=== PATIENT | female | born 1965 | race Caucasian/White ===

== ENCOUNTER 2017-02-17 10:19 | Inpatient (IN) | payer OTHER ==
[2017-02-17] MEDS ORDERED: methylPREDNISolone Sod Succ/PF 125 MG/2 ML VIAL ONE (10:50)
[2017-02-17] MEDS ORDERED: Water For Inject, Bacteriostat 30 ML ONE (10:51)
[2017-02-17 11:02] LABS: #Basophils 0.1 thou/uL (0.0-0.2); #Eosinphils 0.2 thou/uL (0.0-0.7); #Lymphocytes 2.2 thou/uL (1.20-3.40); #Neutrophils 5.8 thou/uL (1.40-6.50); %Basophils 0.9 % (0.0-1.0); %Eosinophils 1.8 % (0.0-10.0); %Lymphocytes 23.5 % (21.0-51.0); %Monocytes 10.6 % (0.0-10.0); Hematocrit 46.5 % (36.0-47.0); Mean Platelet Volume 6.4 fL (7.4-10.4); Red Blood Cell (RBC) Count 4.93 mill/uL (4.20-5.40); White Blood Cell (WBC) Count 9.2 thou/uL (4.8-10.8)
[2017-02-17 11:11] LABS: ALT (SGPT) 14 U/L (8-55); AST (SGOT) 19 U/L (5-34); Alkaline Phosphatase 113 U/L (40-150); Anion Gap 13 mmol/L (10-20); BUN (Urea Nitrogen) 4 mg/dL (9.8-20.1); Bilirubin, Total 0.5 mg/dL (0.2-1.2); CK (CPK) 73 U/L (29-168); Calc. Creatinine Clearance 0 mL/min (70-130); Calcium 9.1 mg/dL (7.8-10.44); Carbon Dioxide 23 mmol/L (22-29); Chloride 104 mmol/L (98-107); Estimated GFR-MDRD 75; Globulin 3.6 g/dL (2.4-3.5); Lipase Less than 4 U/L (8-78); Protein, Total 7.1 g/dL (6.0-8.3)
[2017-02-17 11:13] LABS: Troponin I Less than 0.010 ng/mL (< 0.028)
--- NOTE | 2017-02-17 11:24 | RAD ---
PORTABLE CHEST 1 VIEW: DATE: 02/17/17. TIME: 10:50 a.m. HISTORY: Dyspnea. Strep throat infection diagnosed 4 days ago. FINDINGS: Comparison is made with the exam of 04/30/14. The heart size is normal. The lungs are expanded without focal areas of consolidation, pneumothorax , or pleural effusions. IMPRESSION: No radiographic evidence of acute cardiopulmonary process. POS: [facility]
[2017-02-17] MEDS ORDERED: Magnesium Sulfate 2 GM/100 ML BAG ONE (12:26)
[2017-02-17] MEDS ORDERED: Benzonatate 100 MG CAP PO PRN (16:11)
[2017-02-17] MEDS ORDERED: Artificial Tears 18 DROP/0.9 ML EA EYE PRN (16:11)
[2017-02-17] MEDS ORDERED: Ondansetron ODT 4 MG TAB PO PRN (16:11)
[2017-02-17] MEDS ORDERED: Acetaminophen 325 MG TAB PO PRN (16:11)
[2017-02-17] MEDS ORDERED: Chloraseptic Spray 180 ml Bottle PO PRN (16:11)
[2017-02-17] MEDS ORDERED: Mag-Al 1200 mg/1200 mg/30 ML UDCUP PO PRN (16:11)
[2017-02-17] MEDS ORDERED: Senokot 8.6 MG TAB PO PRN (16:11)
[2017-02-17] MEDS ORDERED: Loratadine 10 MG TAB PO PRN (16:11)
[2017-02-17] MEDS ORDERED: Sodium Chloride 0.65% Nasal 44 ML BOT EA NARE PRN (16:11)
[2017-02-17] MEDS ORDERED: Milk Of Magnesia 30 ML UDCUP PO PRN (16:11)
[2017-02-17] MEDS ORDERED: Zolpidem Tartrate 5 MG TAB PO PRN (16:11)
[2017-02-17] MEDS ORDERED: Ondansetron HCl/PF 4 MG/2 ML Vial IVP PRN (16:11)
[2017-02-17] MEDS ORDERED: Eucerin (Mineral Oil/Petrolatum,White) 30 gm Jar TOP PRN (16:11)
[2017-02-17] MEDS ORDERED: Diabetic Tussin 200 MG/10 ML UDCUP PO PRN (16:11)
[2017-02-17] MEDS ORDERED: HYDROcodone/Acetaminophen 5/325 mg Tablet PO PRN (16:11)
--- NOTE | 2017-02-17 16:26 | HP ---
PRIMARY CARE PHYSICIAN: Simba Serrano M.D. REASON FOR ADMISSION: Acute hypoxic respiratory failure and COPD exacerbation. HISTORY OF PRESENT ILLNESS: A 51-year-old female who has underlying history of hypothyroidism, bipo lar/schizoaffective disorder, and HIV, who came to the emergency room for evaluation of increasing s hortness of breath. The patient reports that 4 days ago she was diagnosed with streptococcal throat and she was given prescription for Z-NISH. The patient took 4 days a Z-NISH and her sore throat was getting better, but the patient had increasing shortness of breath during that period. She was whee zing. She was having cough. She was not able to lie down flat. She was coughing a lot and she was having yellowish sputum. She denies any hemoptysis. She was feeling chest tightness because of co ughing and because of coughing, she was also having abdominal muscle soreness. The patient does hav e a history of COPD, but she was never on oxygen at home. When she presented to emergency room, she was hypoxic with saturation 89%. With oxygen, her saturation improved to 96%. Whenever the patien t was doing little exertion, her symptoms were getting worse and she was becoming hypoxic. The bernardino ent denies any lower extremity swelling. She denies any calf tenderness. She denies any recent tra keeley. She denies any flu-like illness. REVIEW OF SYSTEMS: The following complete review of systems was negative, unless otherwise mentione d in the HPI or below: Constitutional: Weight loss or gain, ability to conduct usual activities. Skin: Rash, itching. Eyes: Double vision, pain. ENT/Mouth: Nose bleeding, neck stiffness, pain, tenderness. Cardiovascular: Palpitations, dyspnea on exertion, orthopnea. Respiratory: Shortness of breath, wheezing, cough, hemoptysis, fever or night sweats. Gastrointestinal: Poor appetite, abdominal pain, heartburn, nausea, vomiting, constipation, or diar milton. Genitourinary: Urgency, frequency, dysuria, nocturia. Musculoskeletal: Pain, swelling. Neurologic/Psychiatric: Anxiety, depression. Allergy/Immunologic: Skin rash, bleeding tendency. Please see my HPI for pertinent positives and negatives. All other review of systems reviewed and n egative except as mentioned in the HPI. PAST MEDICAL HISTORY: Chronic hepatitis C, hypothyroidism, HIV followed by Dr. Maggie, COPD, morbid obesity, and tobacco abuse disorder. PAST SURGICAL HISTORY: Cholecystectomy, bladder sling surgery, appendicectomy, hysterectomy, and ri ght knee surgery. PAST PSYCHIATRIC HISTORY: Bipolar disorder and schizoaffective disorder. The patient has history o f inpatient psychiatric admission in the past. SOCIAL HISTORY: The patient lives at home. She smokes about 2 pack every day basis. She denies an y alcohol abuse. She denies any other illicit drug abuse. FAMILY HISTORY: No strong family history of premature coronary artery disease, stroke or cancer. ALLERGIES: PENICILLIN. CURRENT HOME MEDICATIONS: The patient is on antiretroviral therapy prescribed by Dr. Serrano. The pa tient is not able to tell the name of medication. As per report, the patient is on Stribild one tab let daily, Invega one tablet daily, Synthroid 88 mcg p.o. daily, lamotrigine 200 mg p.o. daily, Geod on 80 mg p.o. twice daily, Effexor 150 mg daily, and Cogentin 1 mg p.o. daily. EMERGENCY ROOM COURSE: The patient has received DuoNeb therapy, Solu-Medrol 125 mg, magnesium sulfa te 2 grams IV fluid. PHYSICAL EXAMINATION: VITAL SIGNS: On arrival, blood pressure 122/80, pulse 100, respiratory rate 22, temperature 98.1, s aturation 89% on room air, with exertion it drops to below 88% and with oxygen therapy saturation re dilma in 92%, weight 97.5 kilograms. GENERAL: The patient is currently alert, awake, mild respiratory distress. HEENT: Head: Normocephalic and atraumatic. Eyes: Pupils round and reactive to light. Extraocula r muscles are intact. ENT: Oropharynx within normal limits, mild pharyngeal erythema noted. No ex udate. NECK: Supple. Range of motion is normal. No meningeal signs of irritation. LUNGS: Bilateral end expiratory wheezing. No rales. No accessory muscles of respiration in use. CARDIAC: S1, S2 regular, slight tachycardia, no murmur, no gallop, no rub. ABDOMEN: Obesity present. Bowel sounds present. No suprapubic tenderness. No organomegaly, no ma ss. BACK: Unremarkable, no CVA tenderness. EXTREMITIES: Upper extremity passive movements of all joints are normal. Lower extremities: No ed cornelius, no calf tenderness. Good peripheral pulsation. SKIN: No skin rash. HEMATOLOGICAL SYSTEM: No lymphadenopathy. PSYCHIATRIC: Normal affect. NEUROLOGIC: Nonfocal examination. SIGNIFICANT LABS: EKG based on my review reveals normal sinus rhythm within normal limits. Chest x -ray based on my review, no acute cardiopulmonary process. CBC: WBC 9.2, hemoglobin 15.9, and plat elets 259. BMP: Sodium 137, potassium 3.3, chloride 104, carbon dioxide 23, BUN 4, creatinine 0.80 , glucose 101, calcium 9.1. LFT: AST 19, ALT 14, alkaline phosphatase 113, albumin 3.5. Lipase le ss than 4. ASSESSMENT AND PLAN: 1. Acute hypoxic respiratory failure due to underlying chronic obstructive pulmonary disease exacer bation. At this point, the patient is maintaining oxygen saturation with 2-3 liter nasal cannula. During this admission, we will monitor her oxygen saturation daily basis to assess need for home oxy gen therapy. 2. Chronic obstructive pulmonary disease exacerbation. At this point, the patient is hypoxic and s he has bilateral wheezing and she failed outpatient therapy. The patient will require admission. W e will continue with DuoNeb q.4 hourly, Solu-Medrol 40 mg IV q.6 hourly, Dulera 2 puffs inhalation b .i.d., Mucinex 600 mg twice daily, empiric antibiotic therapy with levofloxacin 500 mg IV daily. Sy mptomatic treatment for cough with Robitussin, Tessalon and Chloraseptic gargles. 3. Recent streptococcal pharyngitis. We will provide Chloraseptic spray as needed basis. The bernardino ent is on Levaquin therapy. The patient has finished azithromycin therapy. 4. Hypothyroidism. We will continue Synthroid 88 mcg p.o. daily. 5. Hypokalemia. We will replace potassium with IV fluid and we will repeat BMP tomorrow. 6. Tobacco abuse disorder. Smoking cessation counseling given and we will provide nicotine patch w zuly in hospital. 7. Bipolar disorder and schizoaffective disorder. The patient's home medication of Cogentin, Geodo n, lamotrigine, and Invega will be continued as per her home dosage. We will also continue Effexor as per home dosage. 8. Morbid obesity. Dietary education given and weight loss education given. Healthy lifestyle luz elena sures discussed with the patient. 9. Human immunodeficiency virus. The patient is followed by Dr. Serrano. We will continue her antir etroviral therapy while in hospital. 10. History of hepatitis C, currently LFT normal. The patient is following Dr. Serrano for that prob sandip. 11. Deep venous thrombosis prophylaxis. Lovenox 40 mg subcu daily. 12. Gastrointestinal prophylaxis. Protonix 40 mg p.o. daily. CODE STATUS: The patient is FULL CODE. The patient does not have any surrogate decision maker. Disposition plan based on clinical course. We are expecting patient's stay in hospital more than 2 midnights. Plan of care discussed with the patient's family member at bedside in the emergency room .
[2017-02-17] MEDS ORDERED: FLU VACC QS2017-18 36 mo. & older 0.5 ML SYRINGE IM ONE (16:30)
[2017-02-17 16:51] VITALS: BMI 33.6
[2017-02-17] MEDS: Potassium Chloride 30 MEQ in Sodium Chloride 0.9% 1,000 ML IV SCH (17:12)
[2017-02-17] MEDS: Nicotine 21 MG PATCH TD SCH (17:12)
[2017-02-17] MEDS: Mometasone/Formoterol 120 PUFF INHALER INH SCH (18:36)
[2017-02-17] MEDS: guaiFENesin ER 600 MG TAB PO SCH (20:44)
[2017-02-17] MEDS ORDERED: lamoTRIgine 100 MG TAB PO SCH (21:00)
[2017-02-18 05:34] LABS: #Basophils 0.1 thou/uL (0.0-0.2); #Lymphocytes 1.2 thou/uL (1.20-3.40); #Monocytes 0.2 thou/uL (0.11-0.59); #Neutrophils 10.6 thou/uL (1.40-6.50); %Basophils 0.9 % (0.0-1.0); %Eosinophils 0.3 % (0.0-10.0); %Lymphocytes 10.1 % (21.0-51.0); %Monocytes 1.7 % (0.0-10.0); Hematocrit 46.6 % (36.0-47.0); Mean Platelet Volume 6.7 fL (7.4-10.4); Red Blood Cell (RBC) Count 4.92 mill/uL (4.20-5.40); White Blood Cell (WBC) Count 12.2 thou/uL (4.8-10.8)
[2017-02-18] MEDS: Levothyroxine Sodium 88 MCG TAB PO SCH (05:46)
[2017-02-18] MEDS: Potassium Chloride 30 MEQ in Sodium Chloride 0.9% 1,000 ML IV SCH (05:51)
[2017-02-18 05:57] LABS: Anion Gap 10 mmol/L (10-20); BUN (Urea Nitrogen) 11 mg/dL (9.8-20.1); Calc. Creatinine Clearance 127 mL/min (70-130); Calcium 8.8 mg/dL (7.8-10.44); Carbon Dioxide 23 mmol/L (22-29); Chloride 109 mmol/L (98-107); Estimated GFR-MDRD 76
[2017-02-18] MEDS: Mometasone/Formoterol 120 PUFF INHALER INH SCH ×2 (06:38→18:46)
[2017-02-18] MEDS: lamoTRIgine 100 MG TAB PO SCH (08:33)
[2017-02-18] MEDS: guaiFENesin ER 600 MG TAB PO SCH ×2 (08:35→20:23)
[2017-02-18] MEDS: NALTREXONE HCL 50 MG PO SCH (08:36)
[2017-02-18] MEDS: Enoxaparin Sodium 40 MG/0.4 ML SYRINGE SC SCH (08:39)
[2017-02-18] MEDS ORDERED: Azithromycin 250 MG TAB PO SCH (09:00)
--- NOTE | 2017-02-18 13:14 | PDOC.PN ---
- Subjective Encounter Start Date: 02/18/17 Encounter Start Time: 08:30 -: old records requested/rev Patient seen and examined. No new complaints. No overnight events, feels better - Objective Resuscitation Status: Resuscitation Status FULL:Full Resuscitation MAR Reviewed: Yes Vital Signs & Weight: Vital Signs (12 hours) Temp Pulse Resp BP BP Pulse Ox 02/18/17 11:23 97.6 F 83 18 121/83 94 L 02/18/17 10:09 84 18 93 L 02/18/17 08:00 97.7 F 74 18 93 L 02/18/17 07:18 97.7 F 74 18 115/64 93 L 02/18/17 04:00 97.9 F 82 18 129/73 92 L 02/18/17 02:19 81 22 H 89 L I&O: 02/17/17 02/18/17 02/19/17 06:59 06:59 06:59 Intake Total 0 Balance 1939 Result Diagrams: 02/18/17 04:28 02/18/17 04:28 Phys Exam - Physical Examination Constitutional: NAD HEENT: PERRLA, moist MMs, sclera anicteric Neck: no JVD, supple Respiratory: no rales, wheezing present Cardiovascular: RRR, no significant murmur, no rub Gastrointestinal: soft, non-tender, no distention, positive bowel sounds Musculoskeletal: no edema, pulses present Neurological: non-focal, normal sensation, moves all 4 limbs Psychiatric: normal affect, A&O x 3 Skin: no rash, normal turgor Dx/Plan (1) Acute respiratory failure with hypoxemia Code(s): J96.01 - ACUTE RESPIRATORY FAILURE WITH HYPOXIA Status: Acute (2) COPD exacerbation Code(s): J44.1 - CHRONIC OBSTRUCTIVE PULMONARY DISEASE W (ACUTE) EXACERBATION Status: Acute (3) Hypokalemia Code(s): E87.6 - HYPOKALEMIA Status: Acute (4) Bipolar disorder Code(s): F31.9 - BIPOLAR DISORDER, UNSPECIFIED Status: Chronic (5) HIV (human immunodeficiency virus infection) Status: Chronic (6) Obesity (BMI 30.0-34.9) Code(s): E66.9 - OBESITY, UNSPECIFIED Status: Chronic (7) Tobacco abuse Code(s): Z72.0 - TOBACCO USE Status: Chronic - Plan cont current plan of care, continue antibiotics, respiratory therapy * pt has dramatic improvement * today will wean off oxygen and see saturation * continue current optimum medical therapy for COPD * expecting discharge soon * medication reviewed as below * symptomatic treatment. Review of Systems - Review of Systems ENT: negative: Ear Pain, Ear Discharge, Nose Pain, Nose Discharge, Nose Congestion, Mouth Pain, Mouth Swelling, Throat Pain, Throat Swelling, Other Respiratory: negative: Cough, Dry, Shortness of Breath, Hemoptysis, SOB with Excertion, Pleuritic Pain, Sputum, Wheezing Cardiovascular: negative: Chest Pain, Palpitations, Orthopnea, Paroxysmal Noc. Dyspnea, Edema, Light Headedness, Other Gastrointestinal: negative: Nausea, Vomiting, Abdominal Pain, Diarrhea, Constipation, Melena, Hematochezia, Other Genitourinary: negative: Dysuria, Frequency, Incontinence, Hematuria, Retention , Other Musculoskeletal: negative: Neck Pain, Shoulder Pain, Arm Pain, Back Pain, Hand Pain, Leg Pain, Foot Pain, Other - Medications/Allergies Allergies/Adverse Reactions: Allergies Allergy/AdvReac Type Severity Reaction Status Date / Time Penicillins Allergy Verified 02/17/17 16:18 Medications: Current Medications Acetaminophen (Tylenol) 650 mg PO Q4H PRN PRN Reason: Headache/Fever or Pain Hydrocodone Bitart/Acetaminophen (Caroleen 5/325) 1 tab PO Q4H PRN PRN Reason: Moderate Pain (4-6) Al Hydroxide/Mg Hydroxide (Maalox) 30 ml PO Q6H PRN PRN Reason: Heartburn or Indigestion Albuterol/Ipratropium (Duoneb) 3 ml NEB [id number] [facility] Last Admin: 02/18/17 10:09 Dose: 3 ml Artificial Tears (Tears Naturale) 0 drop EA EYE PRN PRN PRN Reason: Dry Eyes Benzonatate (Tessalon) 100 mg PO Q4H PRN PRN Reason: Cough Benztropine Mesylate (Cogentin) 1 mg PO BID [facility] Last Admin: 02/18/17 08:35 Dose: 1 mg Enoxaparin Sodium (Lovenox) 40 mg SC 0900 [facility] Last Admin: 02/18/17 08:39 Dose: 40 mg Guaifenesin (Robitussin Sf) 200 mg PO Q4H PRN PRN Reason: Cough Last Admin: 02/18/17 04:10 Dose: 200 mg Guaifenesin (Mucinex) 600 mg PO Q12HR [facility] Last Admin: 02/18/17 08:35 Dose: 600 mg Hydralazine HCl (Apresoline) 10 mg SLOW IVP Q4H PRN PRN Reason: Systolic BP > 180 Levofloxacin 500 mg/ Device 100 mls @ 100 mls/hr IVPB 1700 [facility] Last Admin: 02/17/17 17:11 Dose: 100 mls Lamotrigine (Lamictal) 200 mg PO DAILY [facility] Last Admin: 02/18/17 08:33 Dose: 200 mg Levothyroxine Sodium (Synthroid) 88 mcg PO 0600 [facility] Last Admin: 02/18/17 05:46 Dose: 88 mcg Loratadine (Claritin) 10 mg PO DAILYPRN PRN PRN Reason: Sinus Symptoms Magnesium Hydroxide (Milk Of Magnesium) 30 ml PO DAILYPRN PRN PRN Reason: Constipation Methylprednisolone Sodium Succinate (Solu-Medrol) 40 mg IVP Q6HR [facility] Last Admin: 02/18/17 12:10 Dose: 40 mg Mineral Oil/White Petrolatum (Eucerin Cream) 0 gm TOP BIDPRN PRN PRN Reason: Dry Skin Mometasone Furoate/Formoterol Fumar (Dulera 200 Mcg/5 Mcg Inhaler) 2 puff INH BID-RT [facility] Last Admin: 02/18/17 06:38 Dose: Not Given Nicotine (Nicoderm Patch) 21 mg TD Q24HR [facility] Last Admin: 02/17/17 17:12 Dose: Not Given Ondansetron HCl (Zofran Odt) 4 mg PO Q6H PRN PRN Reason: Nausea/Vomiting Ondansetron HCl (Zofran) 4 mg IVP Q6H PRN PRN Reason: Nausea/Vomiting Pantoprazole Sodium (Protonix) 40 mg PO DAILY [facility] Last Admin: 02/18/17 08:35 Dose: 40 mg Elvitegr/Cobicist/Emtric/Tenof [ Stribild] 0 each PO 1800 [facility] [Naltrexone Hcl] 50 (Mg) 0 each PO DAILY [facility] Last Admin: 02/18/17 08:36 Dose: 1 each Paliperidone Palmitate Injection 234 Mg/1.5 Ml 0 each IM [id number] [facility] Phenol (Chloraseptic [place] 180 Ml Bot) 0 ml PO PRN PRN PRN Reason: Sore Throat Pneumococcal Polyvalent Vaccine (Pneumovax 23) 0.5 ml IM .ONCE ONE Stop: 02/19/17 09:01 Senna (Senokot) 2 tab PO HSPRN PRN PRN Reason: Constipation Sodium Chloride ([place] Nasal [place] 0.65%) 0 ml EA NARE QIDPRN PRN PRN Reason: Nasal Congestion Sodium Chloride (Flush - Normal Saline) 10 ml IVF Q12HR [facility] Last Admin: 02/18/17 08:40 Dose: Not Given Sodium Chloride (Flush - Normal Saline) 10 ml IVF PRN PRN PRN Reason: Saline Flush Venlafaxine HCl (Effexor) 150 mg PO DAILY [facility] Last Admin: 02/18/17 08:34 Dose: 150 mg Ziprasidone (Geodon) 60 mg PO HS [facility] Last Admin: 02/17/17 20:44 Dose: 60 mg Zolpidem Tartrate (Ambien) 5 mg PO HSPRN PRN PRN Reason: Insomnia
[2017-02-18] MEDS: Nicotine 21 MG PATCH TD SCH (17:18)
[2017-02-18] MEDS ORDERED: [UNRECOGNIZED DRUG - OTHER] PO SCH (18:00)
[2017-02-19] MEDS: Levothyroxine Sodium 88 MCG TAB PO SCH (05:29)
[2017-02-19 07:18] VITALS: BP 109/74; TEMP 97.6
[2017-02-19] MEDS: Mometasone/Formoterol 120 PUFF INHALER INH SCH (07:37)
[2017-02-19] MEDS ORDERED: FLU VACC QS2017-18 36 mo. & older 0.5 ML SYRINGE IM ONE (09:00)
[2017-02-19] MEDS: NALTREXONE HCL 50 MG PO SCH (09:40)
[2017-02-19] MEDS: guaiFENesin ER 600 MG TAB PO SCH (09:42)
[2017-02-19] MEDS: lamoTRIgine 100 MG TAB PO SCH (09:42)
[2017-02-19] MEDS: Enoxaparin Sodium 40 MG/0.4 ML SYRINGE SC SCH (09:42)
--- NOTE | 2017-02-19 13:09 | PDOC.PN ---
- Subjective Encounter Start Date: 02/19/17 Encounter Start Time: 07:00 Subjective: breathing better, wants to go home - Objective Resuscitation Status: Resuscitation Status FULL:Full Resuscitation MAR Reviewed: Yes Vital Signs & Weight: Vital Signs (12 hours) Temp Pulse Resp BP Pulse Ox 02/19/17 11:16 86 16 96 02/19/17 08:00 97.6 F 71 18 93 L 02/19/17 07:36 81 18 94 L 02/19/17 07:11 97.6 F 71 18 109/74 93 L 02/19/17 04:00 97.8 F 66 22 H 115/77 95 02/19/17 02:40 63 16 94 L I&O: 02/18/17 02/19/17 02/20/17 06:59 06:59 06:59 Intake Total 1939 2800 Balance 1939 2800 Result Diagrams: 02/18/17 04:28 02/18/17 04:28 Phys Exam - Physical Examination HEENT: PERRLA, moist MMs Neck: no JVD, supple Respiratory: no wheezing, no rales rhonchi+ Cardiovascular: RRR, no significant murmur Gastrointestinal: soft, non-tender, positive bowel sounds Musculoskeletal: no edema, pulses present Neurological: non-focal, moves all 4 limbs Psychiatric: A&O x 3 Dx/Plan (1) Acute respiratory failure with hypoxemia Code(s): J96.01 - ACUTE RESPIRATORY FAILURE WITH HYPOXIA Status: Resolved (2) COPD exacerbation Code(s): J44.1 - CHRONIC OBSTRUCTIVE PULMONARY DISEASE W (ACUTE) EXACERBATION Status: Acute (3) Bipolar disorder Code(s): F31.9 - BIPOLAR DISORDER, UNSPECIFIED Status: Chronic (4) HIV (human immunodeficiency virus infection) Status: Chronic (5) Obesity (BMI 30.0-34.9) Code(s): E66.9 - OBESITY, UNSPECIFIED Status: Chronic (6) Tobacco abuse Code(s): Z72.0 - TOBACCO USE Status: Chronic - Plan oral omnicef, steroid taper -: has neb at home -: to f/u with PCP in 1 week -: to f/u with in 1 week with regular check of CD4 count -: may dc home * . Review of Systems - Medications/Allergies Allergies/Adverse Reactions: Allergies Allergy/AdvReac Type Severity Reaction Status Date / Time Penicillins Allergy Verified 02/17/17 16:18
--- NOTE | 2017-02-19 14:45 | DIS ---
DATE OF ADMISSION: 02/17/2017 DATE OF DISCHARGE: 02/19/2017 DISCHARGE DISPOSITION: To home. PRIMARY DISCHARGE DIAGNOSES: Acute chronic obstructive pulmonary disease exacerbation, resolving; a cute respiratory failure with hypoxia, resolved. SECONDARY DISCHARGE DIAGNOSES: History of human immunodeficiency virus, obesity, tobacco abuse, bip olar disorder. PROCEDURES DONE DURING HOSPITALIZATION: Chest x-ray done on the day of admission showed no acute ca rdiopulmonary process. White count of 9 on the day of admission with 63% neutrophils. One set of c ardiac enzymes were negative. DISCHARGE MEDICATIONS: Patient to continue DuoNebs q.6 hourly, Omnicef 300 mg p.o. twice daily, Cog entin 1 mg p.o. twice daily, Stribild 1 tablet at bedtime, Advair Diskus inhaler twice daily, levoth yroxine 88 mcg p.o. daily, naproxen 50 mg p.o. daily, paliperidone shots once a month, prednisone ta pering dose starting at 10 mg, Effexor 150 mg p.o. daily, Geodon 60 mg p.o. at bedtime, and lamotrig ine 200 mg p.o. daily. ALLERGIES: Allergic to PENICILLIN. DISCHARGE PLAN: Patient to follow up with Dr. Serrano in 1 week and she also needs to get her CD4 cou nt checked. BRIEF COURSE DURING HOSPITALIZATION: The patient initially got admitted on 02/17/2017 with complain ts of shortness of breath. She was found to have had strep throat and had taken Z-NISH prior to arri mercedes. She was essentially admitted for COPD exacerbation. She was placed on DuoNeb, steroids, and e mpiric IV antibiotics. She is wanting to go home today. Please note CD4 count was not checked duri ng her stay here. This needs to be checked with a followup appointment with Dr. Serrano in 1 week. S he is ambulating and is on room air this morning. She needs to continue tapering steroids and Omnic ef as prescribed. Please see a face to face documentation on [facility] for the day of discharge.
[2017-02-26] MEDS ORDERED: PALIPERIDONE PALMITATE 234 MG/1.5 ML IM SCH (12:00)
== END 2017-02-19 11:52 | disposition home or self-care (01) | DRG 189 ==
LOC: ERS 10:19 → T4-B 14:44
PROVIDERS: ADMIT Internal Medicine; ATTEND Internal Medicine
DX: J96.01 Acute respiratory failure with hypoxia (principal); B20 Human immunodeficiency virus [HIV] disease; J44.1 Chronic obstructive pulmonary disease with (acute) exacerbation; F25.9 Schizoaffective disorder, unspecified; E66.01 Morbid (severe) obesity due to excess calories; B19.10 Unspecified viral hepatitis B without hepatic coma; F31.9 Bipolar disorder, unspecified; E03.9 Hypothyroidism, unspecified; E87.6 Hypokalemia; J02.0 Streptococcal pharyngitis; F17.210 Nicotine dependence, cigarettes, uncomplicated; Z68.33 Body mass index [BMI] 33.0-33.9, adult; Z86.19 Personal history of other infectious and parasitic diseases; Z88.0 Allergy status to penicillin
CPT/HCPCS: 36415; 71010; 80048; 80053; 82553; 83690; 84484; 85025; 90471; 90682; 90732; 93005; 94640; 94760; 96361; 96365; 96375; A4216; G0008; G0009; J1650; J1956; J2920; J2930; J3475; J3480; J7050; J7620; Q2036

== ENCOUNTER 2019-03-01 12:42 | Outpatient (CLI) | payer OTHER ==
[2019-03-01 15:57] LABS: Hemoglobin 14.8 g/dL (12.0-16.0); Mean Corpuscular HGB CONC 34.5 g/dL (32.0-36.0); Mean Corpuscular Hemoglobin 32.7 pg (27.0-31.0); Mean Platelet Volume 6.6 fL (7.4-10.4); Platelet Count 270 thou/uL (130-400); RBC Distribution Width 12.5 % (11.5-14.5); Red Blood Cell (RBC) Count 4.52 mill/uL (4.20-5.40); White Blood Cell (WBC) Count 8.8 thou/uL (4.8-10.8)
[2019-03-01 16:02] LABS: Prothrombin Time 12.9 SEC (12.0-14.7)
[2019-03-01 16:16] LABS: Anion Gap 12 mmol/L (10-20); BUN (Urea Nitrogen) 9 mg/dL (9.8-20.1); Calc. Creatinine Clearance 0 mL/min (70-130); Calcium 9.3 mg/dL (7.8-10.44); Carbon Dioxide 24 mmol/L (22-29); Chloride 107 mmol/L (98-107); Estimated GFR-MDRD 69; Glucose 86 mg/dL (70-105); Potassium 4.2 mmol/L (3.5-5.1); Sodium 139 mmol/L (136-145)
--- NOTE | 2019-03-05 23:04 | EKG ---
Test Reason : Blood Pressure : / mmHG Vent. Rate : 065 BPM Atrial Rate : 065 BPM P-R Int : 192 ms QRS Dur : 084 ms QT Int : 422 ms P-R-T Axes : 062 067 058 degrees QTc Int : 438 ms Normal sinus rhythm Normal ECG When compared with ECG of 17-FEB-2017 10:35, No significant change was found Confirmed by LIA LANCASTER M.D. ([id number] on 03/05/2019 11:03:30 PM Referred By: NURIS Confirmed By:LAI LANCASTER M.D.
== END 2019-03-01 12:43 | disposition home or self-care (01) ==
LOC: LABBT 12:42
PROVIDERS: ATTEND Orthopaedic Surgery
DX: Z01.818 Encounter for other preprocedural examination (principal); M17.11 Unilateral primary osteoarthritis, right knee
CPT/HCPCS: 80048; 85027; 85610; 87081; 93005; 93010

== ENCOUNTER 2019-03-08 08:41 | Inpatient (IN) | payer OTHER ==
[2019-03-01 13:57] VITALS: BMI 31.0
[2019-03-08] MEDS ORDERED: Clindamycin/D5W 900 mg/50 ml Premix Bag ONE (09:59)
[2019-03-08] MEDS ORDERED: Midazolam HCl 2 mg/2 ml Vial ONE (11:09)
[2019-03-08] MEDS ORDERED: Fentanyl 100 MCG/2 ML VIAL ONE ×3 (11:09→17:02)
[2019-03-08] MEDS ORDERED: Ondansetron PF 4 MG/2 ML Vial IVP PRN (11:45)
[2019-03-08] MEDS ORDERED: Promethazine HCl 25 MG/ML VIAL IM PRN ×2 (11:45→15:25)
[2019-03-08] MEDS ORDERED: Zolpidem Tartrate 5 MG TAB PO PRN (11:45)
[2019-03-08] MEDS ORDERED: Ropivacaine 0.2% 550 ML 550 ML NERVE BLCK SCH (11:45)
[2019-03-08] MEDS ORDERED: Fentanyl 100 MCG/2 ML VIAL IV PRN (11:46)
[2019-03-08] MEDS ORDERED: Acetaminophen 325 MG TAB PO PRN ×2 (11:47→12:30)
[2019-03-08] MEDS ORDERED: Non-Formulary Item 1 EACH (Acetaminophen With Codeine [Tylenol With Codeine #4] 1 TABLET) PO PRN (12:28)
[2019-03-08] MEDS ORDERED: Non-Formulary Item 1 EACH (Fluticasone/Salmeterol [Advair Diskus 250/50] 1 INH) IH PRN (12:28)
[2019-03-08] MEDS ORDERED: PALIPERIDONE PALMITATE IM SCH (12:30)
[2019-03-08] MEDS ORDERED: Fentanyl 100 MCG/2 ML VIAL SLOW IVP PRN (12:30)
[2019-03-08] MEDS ORDERED: Neomycin-Polymyxin 1 ML AMP ONE (13:19)
[2019-03-08] MEDS ORDERED: Promethazine HCl 25 MG/ML VIAL SLOW IVP PRN (15:25)
[2019-03-08] MEDS ORDERED: Ondansetron HCl/PF 4 MG/2 ML Vial IVP PRN (15:25)
[2019-03-08] MEDS ORDERED: Ropivacaine HCl/PF 250 ML in Premix Bag 1 BAG NERVE BLCK SCH (15:30)
[2019-03-08] MEDS ORDERED: Clindamycin/D5W 900 MG in Premix Bag 1 BAG IVPB SCH (16:00)
--- NOTE | 2019-03-08 16:02 | RAD ---
RIGHT KNEE: 03/08/19 Two views. HISTORY: Postop follow-up right knee from knee replacement. FINDINGS/IMPRESSION: Postop changes are noted with anterior skin lacey. Knee prosthesis has been placed. The components appear in adequate position and alignment on this two view study. POS: [facility]
[2019-03-08] MEDS: Ketorolac Tromethamine 30 MG/ML VIAL IVP SCH ×2 (19:04→23:31)
[2019-03-08] MEDS: busPIRone HCl 10 MG TAB PO SCH ×2 (19:14→20:45)
[2019-03-08] MEDS: OLANZapine 5 MG TAB PO SCH (20:45)
[2019-03-08] MEDS: traZODone HCl 50 MG TAB PO SCH (20:45)
[2019-03-08] MEDS: Benztropine Mesylate 2 MG/2 ML VIAL FS SCH (20:46)
[2019-03-08] MEDS: Clindamycin/D5W 900 MG in Premix Bag 1 BAG IVPB SCH (20:54)
[2019-03-08] MEDS ORDERED: Calcium Carbonate 500 MG ChewTAB PO PRN (21:46)
--- NOTE | 2019-03-08 21:47 | OP ---
DATE OF PROCEDURE: 03/08/2019 PREOPERATIVE DIAGNOSIS: Severe arthritis of the right knee. POSTOPERATIVE DIAGNOSIS: Severe arthritis of the right knee. PROCEDURE PERFORMED: Right total knee replacement. ANESTHESIA: General. TECHNIQUE: The patient had a block performed by Anesthesia prior to surgery. She was given preoperative IV antibiotics, taken to operating room, placed in supine position. Satisfactory general anesthesia was performed. The right lower extremity was sterilely prepped and draped in usual fashion. After exsanguination of tourniquet, the right proximal thigh was raised to 300 mmHg. A longitudinal incision was made over the anterior aspect of the knee and a medial parapatellar arthrotomy was performed. The patient was noted to have severe arthritis in the medial compartment, moderate arthritis in the patellofemoral joint. There was significant synovitis and a partial synovectomy was performed. The ACL was excised. The rest of the medial and lateral menisci were excised and using the [employer] instrumentation, intramedullary guide was used to remove the distal 10 mm of the distal femur at a 5-degree valgus angle. The tibia was brought forward and extramedullary guide was used to remove 10 mm off the unaffected side. Spurs were removed and the proximal tibia was measured as a size 7. The base plate was placed and the hole was made for the finned stem. The distal femur was then addressed. It was measured as a size 7 and the cutting jig was placed over the distal femur. The cuts were made on the anterior, posterior, and the chamfer cuts. Hole was made for the femoral stems and trials were then inserted. The soft tissues were balanced. A posterior release was performed and the medial and lateral soft tissue was balanced and the trials showed that a 16 mm tibial insert allowed for full extension and good stability of the knee in both flexion and extension. The undersurface of the patella was cut and then measured. Three holes were made for a 29 Tri-Peg patella. Knee joint was then copiously irrigated with antibiotic solution using the high-speed traffic and transport planner while the antibiotic-impregnated methylmethacrylate was mixed. The knee was completely dried and then the size 7- thin base plate was cemented into place. The size 7 porous femoral component was impacted in place. The 16 mm tibial insert was locked into the tibial base plate. Knee was placed in the full extension and the 29 mm dome Tri-Peg patella was cemented into place. Methylmethacrylate was removed and cement was allowed to harden. The knee joint was then again irrigated and then closed using #2 Vicryl for the retinacular tissue, 0-Vicryl for the fat and subcutaneous tissues and the skin was closed with skin lacey. Sterile dressing was applied. The tourniquet was released. The patient was awakened, extubated, and transferred to recovery room in stable condition. ESTIMATED BLOOD LOSS: None. COMPLICATIONS: None. TOURNIQUET TIME: 69 minutes. Job ID: [id number]
[2019-03-08] MEDS ORDERED: Famotidine 20 MG TAB PO SCH (22:00)
[2019-03-08] MEDS ORDERED: Sodium Chloride 0.9% 1,000 ML IV SCH (23:45)
[2019-03-09] MEDS ORDERED: [UNRECOGNIZED DRUG - OTHER] PO SCH ×2 (01:30→21:00)
[2019-03-09] MEDS ORDERED: Sodium Chloride 0.9% 250 ML IV SCH (03:00)
[2019-03-09] MEDS: Clindamycin/D5W 900 MG in Premix Bag 1 BAG IVPB SCH (03:42)
[2019-03-09] MEDS: Sodium Chloride 0.9% 1,000 ML IV SCH ×2 (03:43→16:55)
[2019-03-09 05:23] LABS: #Basophils 0.1 thou/uL (0.0-0.2); #Eosinphils 0.3 thou/uL (0.0-0.7); #Lymphocytes 1.4 thou/uL (1.20-3.40); #Neutrophils 6.5 thou/uL (1.40-6.50); %Basophils 0.7 % (0.0-1.0); %Eosinophils 3.2 % (0.0-10.0); %Lymphocytes 14.6 % (21.0-51.0); %Monocytes 11.2 % (0.0-10.0); %Neutrophils 70.4 % (42.0-75.0); Hemoglobin 11.6 g/dL (12.0-16.0); Mean Corpuscular HGB CONC 34.4 g/dL (32.0-36.0); Mean Corpuscular Hemoglobin 32.5 pg (27.0-31.0); Mean Corpuscular Volume 94.5 fL (78.0-98.0); Mean Platelet Volume 6.7 fL (7.4-10.4); Platelet Count 210 thou/uL (130-400); RBC Distribution Width 12.4 % (11.5-14.5); Red Blood Cell (RBC) Count 3.56 mill/uL (4.20-5.40); White Blood Cell (WBC) Count 9.3 thou/uL (4.8-10.8)
[2019-03-09] MEDS: Ketorolac Tromethamine 30 MG/ML VIAL IVP SCH ×3 (05:35→18:04)
[2019-03-09] MEDS: Levothyroxine Sodium 88 MCG TAB PO SCH (05:36)
[2019-03-09 05:38] LABS: Anion Gap 11 mmol/L (10-20); BUN (Urea Nitrogen) 19 mg/dL (9.8-20.1); Calc. Creatinine Clearance 105 mL/min (70-130); Carbon Dioxide 21 mmol/L (22-29); Chloride 106 mmol/L (98-107); Estimated GFR-MDRD 69; Glucose 112 mg/dL (70-105); Potassium 3.7 mmol/L (3.5-5.1); Sodium 134 mmol/L (136-145)
[2019-03-09] MEDS: HYDROcodone/Acetaminophen 10/325 mg Tablet PO PRN ×2 (05:43→09:30)
--- NOTE | 2019-03-09 06:32 | CON ---
DATE OF CONSULTATION: 03/08/2019 TIME OF ASSESSMENT: 2100. REASON FOR CONSULTATION: Medical management. HISTORY OF PRESENT ILLNESS: Ms. Parikh is a pleasant 53-year-old woman, who has undergone a right total knee replacement by Dr. Rodgers and has been referred for medical management. She has a known history of COPD, hypothyroidism, HIV, and bipolar disorder. At this present time, the patient states she feels well and does not have any pain involving the right lower extremity due to a nerve block. She states she is otherwise feeling well. Does report some mild indigestion that recently just started. Denies having any nausea or vomiting. No abdominal pain. Denies having any headaches or dizziness. She denies chest pain, palpitations, or shortness of breath. Overall, she feels well despite being sleepy from the pain medications and is currently without complaints. REVIEW OF SYSTEMS: All other review of systems are negative. PAST MEDICAL HISTORY: 1. Chronic hepatitis C. 2. Hypothyroidism. 3. HIV. 4. COPD. 5. Current smoker. 6. Bipolar/schizoaffective disorder. PAST SURGICAL HISTORY: 1. Cholecystectomy. 2. Bladder sling surgery. 3. Appendectomy. 4. Hysterectomy. 5. Right total knee replacement. SOCIAL HISTORY: The patient lives at home. She is fully independent. Reports smoking a pack per day. Denies any alcohol abuse. Denies any illicit drug use. FAMILY HISTORY: Noncontributory. ALLERGIES: 1. PENICILLIN. 2. IODINE. CURRENT MEDICATIONS: 1. Tylenol with Codeine. 2. Cogentin. 3. Buspirone. 4. Klonopin. 5. Stribild. 6. Advair Diskus. 7. Levothyroxine. 8. Zyprexa. 9. Invega. 10. Trazodone. 11. Effexor. PHYSICAL EXAMINATION: GENERAL: The patient appears well developed, well nourished, and is in no acute distress. VITAL SIGNS: Temperature 97.2, pulse 87, respirations 16, O2 saturation 98% on room air, blood pressure 99/48. HEENT: Normocephalic and atraumatic. Pupils are equal, round, reactive to light. Sclerae without icterus. Oropharynx is clear. NECK: Supple. LUNGS: Clear to auscultation bilaterally without any wheezes, rales, or rhonchi. CARDIAC: Regular rate and rhythm without audible murmurs, rubs, or gallops. ABDOMEN: Soft, nontender, nondistended. Normoactive bowel sounds present. No guarding or rigidity. No renal angle tenderness. EXTREMITIES: No lower leg edema in the left lower extremity. Right lower extremity with a bandage in place. SKIN: Normal, warm and dry. LABORATORY DATA: On 03/01/2019, white blood count 8.8, hemoglobin 14.8, hematocrit 42.9, platelets 270. Sodium 139, potassium 4.2, BUN 9, creatinine 0.85, GFR 69, glucose 86, calcium 9.3. IMAGING DATA: Knee x-ray done on 03/08/2019. Postop changes noted with anterior skin lacey. New prosthesis has been placed. Components appear to be in adequate position and alignment. IMPRESSION AND PLAN: Ms. Parikh is a very pleasant 53-year-old woman, who is status post right total knee replacement, who has been referred for medical management. The patient is known to have hypothyroidism, HIV, COPD, and is a current smoker. Home medications will be resumed. Vital signs are notable for low blood pressure of 99/48. We will start IV fluids at 75 mL an hour. The patient without complaints at this present time. We will check CBC and BMP in the a.m. We will order our DuoNeb p.r.n. should she developed any shortness of breath associated with her underlying chronic obstructive pulmonary disease. Currently, her pain is very well controlled. The patient without any complaints at this present time, except for indigestion for which we will give famotidine. Continue IV antibiotics and pain relief as per Dr. Rodgers. Code status full. Her surrogate decision maker is her spouse, Shania Ngo. Thank you for this consultation. We will continue to follow the patient with you. Job ID: [id number]
[2019-03-09] MEDS: OLANZapine 5 MG TAB PO SCH ×2 (09:11→20:38)
[2019-03-09] MEDS: lamoTRIgine 100 MG TAB PO SCH (09:11)
[2019-03-09] MEDS: busPIRone HCl 10 MG TAB PO SCH ×3 (09:11→20:38)
[2019-03-09] MEDS: Famotidine 20 MG TAB PO SCH ×2 (09:12→20:38)
--- NOTE | 2019-03-09 12:14 | PDOC.HOSPP ---
- Subjective Encounter Date: 03/09/19 Encounter Time: 12:12 Subjective: Ms. Parikh was seen today in follow-up post knee replacement. She does not have any complaints. She denies dyspnea. - Objective Vital Signs & Weight: Vital Signs (12 hours) Temp Pulse Resp BP Pulse Ox 03/09/19 11:00 98.0 F 82 18 130/78 93 L 03/09/19 07:44 97.8 F 89 12 90/59 L 93 L 03/09/19 03:51 99.3 F 94 16 99/63 91 L 03/09/19 02:34 94 102/63 Weight Weight 198 lb I&O: 03/08/19 03/09/19 03/10/19 06:59 06:59 06:59 Intake Total 2060 Output Total 450 Balance 1610 Result Diagrams: 03/09/19 04:52 03/09/19 04:52 Hospitalist ROS - Medication Medications: Active Medications Generic Name Dose Route Start Last Admin Trade Name Freq PRN Reason Stop Dose Admin Hydrocodone Bitart/Acetaminophen 1 tab 03/08/19 11:45 03/09/19 05:43 Parkman 10/325 PO 1 tab Q4H PRN Administration Pain (1-3) Hydrocodone Bitart/Acetaminophen 2 tab 03/08/19 11:45 03/09/19 09:30 Parkman 10/325 PO 2 tab Q4H PRN Administration PAIN (4-6) Benztropine Mesylate 1 mg 03/08/19 21:00 03/08/19 20:46 Cogentin FS Not Given BID LIDIA Buspirone HCl 10 mg 03/08/19 15:00 03/09/19 09:11 Buspar PO 10 mg TID LIDIA Administration Calcium Carbonate 1,000 mg 03/08/19 21:46 03/08/19 22:09 Tums PO 1,000 mg DAILYPRN PRN Administration Heartburn or Indigestion Famotidine 20 mg 03/09/19 09:00 03/09/19 09:12 Pepcid PO 20 mg Q12HR LIDIA Administration Fentanyl 50 mcg 03/08/19 11:46 03/09/19 11:33 Sublimaze IV 50 mcg Q1H PRN Administration Breakthrough Pain Sodium Chloride 1,000 mls @ 80 mls/hr 03/09/19 03:15 03/09/19 03:43 Normal Saline 0.9% IV Not Given .[id number] LIDIA Ketorolac Tromethamine 30 mg 03/08/19 18:00 03/09/19 11:37 Toradol IVP 03/09/19 18:01 30 mg Q6HR LIDIA Administration Lamotrigine 200 mg 03/09/19 09:00 03/09/19 09:11 Lamictal PO 200 mg DAILY LIDIA Administration Levothyroxine Sodium 88 mcg 03/09/19 06:00 03/09/19 05:36 Synthroid PO 88 mcg 0600 LIDIA Administration Olanzapine 10 mg 03/08/19 21:00 03/09/19 09:11 Zyprexa PO 10 mg BID LIDIA Administration Trazodone HCl 100 mg 03/08/19 21:00 03/08/19 20:45 Desyrel PO 100 mg HS LIDIA Administration - Exam Eye: PERRL Heart: RRR, no murmur, no gallops, no rubs, normal peripheral pulses Respiratory: CTAB (+ occasional rhonchi), no rales, no ronchi, normal chest expansion Gastrointestinal: soft, non-tender, non-distended, normal bowel sounds, no palpable masses, no hepatomegaly, no splenomegaly Extremities: 1+ LE edema Hosp A/P (1) COPD (chronic obstructive pulmonary disease) Status: Chronic (2) Bipolar disorder Code(s): F31.9 - BIPOLAR DISORDER, UNSPECIFIED Status: Chronic (3) HIV (human immunodeficiency virus infection) Status: Chronic (4) Status post total right knee replacement Code(s): Z96.651 - PRESENCE OF RIGHT ARTIFICIAL KNEE JOINT Status: Acute - Plan * COPD- stable- continue Duonebs as needed and Advair * HIV- continue HAART * PT/OT as per Orthopedics
[2019-03-09] MEDS: Benztropine Mesylate 2 MG/2 ML VIAL FS SCH (16:34)
--- NOTE | 2019-03-09 19:46 | PRG ---
DATE OF SERVICE: 03/09/2019 SUBJECTIVE: Ms. Parikh is 1 day status post right total knee replacement. The patient was able to get up and ambulate with physical therapy in the ring, approximately 100 feet this morning. She had a nerve block performed and it is functioning well. She has fairly good pain control. The patient has been afebrile. Her blood pressure at 11:00 this morning is 130/78. O2 saturation is 93, and she is on room air. Pulse is 82, respiratory rate is 18. The right lower extremity is neurovascularly intact. She is able to flex and extend her right ankle and toes well. LABORATORY DATA: CBC; white count is 9.3, hemoglobin 11.6, hematocrit 33.7. The patient will continue with PT and OT. They will continue with improving her strength, range of motion in the right knee. She needs to continue with therapy to become more independent and safer when she does leave the hospital and is at home. Job ID: [id number]
[2019-03-09] MEDS: Benztropine 1 MG TAB PO SCH (20:36)
[2019-03-09] MEDS: traZODone HCl 50 MG TAB PO SCH (20:37)
[2019-03-10] MEDS: HYDROcodone/Acetaminophen 10/325 mg Tablet PO PRN ×3 (02:43→09:42)
[2019-03-10] MEDS: Sodium Chloride 0.9% 1,000 ML IV SCH (04:15)
[2019-03-10 04:59] LABS: Hemoglobin 10.8 g/dL (12.0-16.0); Mean Corpuscular HGB CONC 34.3 g/dL (32.0-36.0); Mean Corpuscular Hemoglobin 32.8 pg (27.0-31.0); Mean Corpuscular Volume 95.4 fL (78.0-98.0); Mean Platelet Volume 6.5 fL (7.4-10.4); Platelet Count 180 thou/uL (130-400); RBC Distribution Width 12.4 % (11.5-14.5); Red Blood Cell (RBC) Count 3.28 mill/uL (4.20-5.40); White Blood Cell (WBC) Count 9.4 thou/uL (4.8-10.8)
[2019-03-10] MEDS: Levothyroxine Sodium 88 MCG TAB PO SCH (05:30)
[2019-03-10 08:01] VITALS: TEMP 98.3
[2019-03-10] MEDS: Famotidine 20 MG TAB PO SCH (08:13)
[2019-03-10] MEDS: busPIRone HCl 10 MG TAB PO SCH (08:13)
[2019-03-10] MEDS: OLANZapine 5 MG TAB PO SCH (08:13)
[2019-03-10] MEDS: lamoTRIgine 100 MG TAB PO SCH (08:13)
[2019-03-10] MEDS: Benztropine 1 MG TAB PO SCH (08:14)
[2019-03-10 12:20] VITALS: BP 119/79
--- NOTE | 2019-03-10 14:08 | DIS ---
DATE OF ADMISSION: 03/08/2019 DATE OF DISCHARGE: 03/10/2019 HISTORY OF PRESENT ILLNESS: Please see admission history and physical. HOSPITAL COURSE: The patient was worked up medically and prior to admission, she was found to be stable for surgery. She was given perioperative IV antibiotics, taken to the operating room on the day of surgery and under general anesthetic, underwent right total knee replacement. Postoperatively, the patient had foot pumps and started on aspirin for DVT prophylaxis. Physical Therapy started with the patient the following day and by discharge, the patient was able to independently get out of bed and ambulate with a walker. She had good pain control with the nerve block. The nerve block was removed on the day of discharge, and the right lower extremity is neurovascularly intact. Vital signs remained stable. Her laboratory, postoperative day #2, hemoglobin is 10.8, hematocrit 31.3. DISCHARGE DIAGNOSIS: Severe arthritis, right knee, requiring total knee replacement. DISCHARGE MEDICATIONS: The patient will continue with her previous home medications. I wrote a prescription for, 1. [place] 10 one every 4 to 6 hours as needed for pain #40. 2. She will continue taking aspirin 325 mg a day. FOLLOWUP: Follow up in my office 2 weeks from surgery. Job ID: [id number]
== END 2019-03-10 12:35 | disposition home or self-care (01) | DRG 470 ==
LOC: SDC 08:41 → SJJU 18:11
PROVIDERS: ADMIT Orthopaedic Surgery; ATTEND Orthopaedic Surgery
PROC: 0SRC0J9 Replacement of Right Knee Joint with Synthetic Substitute, Cemented, Open Approach (ICD-10-PCS; principal; 2019-03-08)
DX: M17.11 Unilateral primary osteoarthritis, right knee (principal); E03.9 Hypothyroidism, unspecified; Z21 Asymptomatic human immunodeficiency virus [HIV] infection status; J44.9 Chronic obstructive pulmonary disease, unspecified; F25.9 Schizoaffective disorder, unspecified; Z96.651 Presence of right artificial knee joint; Z88.0 Allergy status to penicillin; Z86.711 Personal history of pulmonary embolism; Z86.73 Personal history of transient ischemic attack (TIA), and cerebral infarction without residual deficits; Z90.710 Acquired absence of both cervix and uterus; Z88.8 Allergy status to other drugs, medicaments and biological substances; J45.909 Unspecified asthma, uncomplicated; F32.9 Major depressive disorder, single episode, unspecified; F31.9 Bipolar disorder, unspecified; B18.2 Chronic viral hepatitis C; F17.200 Nicotine dependence, unspecified, uncomplicated
CPT/HCPCS: 36415; 80048; 85027; A4306; C1713; J1885; J2250; J2795; J3010; J3490

== ENCOUNTER 2019-09-11 09:22 | Day surgery (SDC) | payer OTHER ==
--- NOTE | 2019-09-09 23:37 | HP ---
She is scheduled for day surgery on 09/11/2019. HISTORY OF PRESENT ILLNESS: Ms. Parikh is a 53-year-old female with prior hysterectomy, BSO, who has also notable medical history of HIV positive and hepatitis C carrier, who was recently referred from [facility] approximately 6 weeks ago for leukoplakia of the right labium minus. Vulvar biopsy obtained at the 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 The patient was evaluated for this in my office on 08/15/2019. She denied any friability or bleeding of the labia and no chronic itching issues. She is also noted a cigarette smoker. She has had a recent Pap smear of the vaginal cuff, which was negative. She is followed by Dr. Serrano for her HIV disease, and reports her viral load is undetectable. PAST MEDICAL HISTORY: Hepatitis C carrier. She has also had bipolar disorder, schizoaffective disorder with schizophrenia, anxiety, hypothyroidism, and HIV positive. PAST SURGICAL HISTORY: A complete hysterectomy and bladder neck suspension in the past. SOCIAL HISTORY: She is a current [id number]-day smoker. Denies any excessive alcohol use or IV drug use at this time. ALLERGIES: SHE HAS AN ALLERGIC REACTION TO PENICILLIN. FAMILY HISTORY: Significant cancers for prostate carcinoma in a paternal grandfather. OBSTETRICAL HISTORY: G4, P1, A3. CURRENT MEDICATIONS: 1. Benzonatate 100 mg tablet daily. 2. Benztropine 1 mg tablet b.i.d. 3. Buspar 20 mg tablet 3 times a day. 4. Invega Sustenna 234 mg-1.5 mL as intramuscular injection every 4 weeks. 5. Lamictal 200 mg tablet daily. 6. Levothyroxine 80 mcg tablet daily. 7. Meloxicam 15 mg tablet as needed for arthritic pain. 8. Olanzapine 5 mg tablet twice a day. 9. Stribild [phone] mg tablet one p.o. a day. 10. Trazodone 100 mg tablets 2 tablets p.o. at bedtime. 11. Venlafaxine ER 150 mg capsule one tablet daily. PHYSICAL EXAMINATION: VITAL SIGNS: The patient's height is 5 feet 7 inches, weight 212 pounds, BMI 33.2. Blood pressure 130/72, pulse 98, respiratory rate 18. HEENT: Within normal limits. CHEST: Clear to auscultation. HEART: Regular rate and rhythm. S1 and S2 heart sounds. ABDOMEN: Soft and nontender with no palpable masses. PELVIS: On pelvic exam, there is an external leukoplakia lesion on the right labium minus measuring approximately 2 x 2 cm. There is no friability or ulcerations appreciated. The examination of the remainder of the vulva and perineum shows no concerning lesions suggestive of vulvar dysplasia. Anterior vaginal exam shows no evidence of any abnormal vaginal lesions. Vaginal cuff is intact. Recent Pap smear of the vaginal cuff is benign. There are no pelvic masses appreciated on bimanual exam. ASSESSMENT: This is a 53-year-old white female with HIV positive and hepatitis C disease and smoker, who has a recent vulvar biopsy with high-grade dysplasia, JENNIFER 2 to 3 on the right labium minus. PLAN: Plan is to proceed with wide local excision of the lesion. We will plan for wide local excisions with margins and primary closure of the site. Risks and benefits of procedure have been discussed in detail. She is set for surgery on 09/11/2019. Job ID: [id number]
[2019-09-10 10:37] VITALS: BMI 32.4
[2019-09-10 11:42] LABS: Hemoglobin 15.3 g/dL (12.0-16.0); Mean Corpuscular HGB CONC 33.3 g/dL (32.0-36.0); Mean Corpuscular Hemoglobin 32.6 pg (27.0-31.0); Mean Corpuscular Volume 98.1 fL (78.0-98.0); Mean Platelet Volume 6.6 fL (7.4-10.4); Platelet Count 285 thou/uL (130-400); RBC Distribution Width 13.1 % (11.5-14.5); Red Blood Cell (RBC) Count 4.68 mill/uL (4.20-5.40)
[2019-09-11] MEDS ORDERED: PHENYLEPHRINE-NS 100 MCG/ML 10 ML SYRINGE ONE (09:49)
[2019-09-11] MEDS ORDERED: PROPOFOL 200 MG/20 ML VIAL ONE (09:49)
[2019-09-11] MEDS ORDERED: Midazolam HCl 2 mg/2 ml Vial ONE ×2 (11:39→11:42)
[2019-09-11] MEDS ORDERED: Lidocaine 1% w/Epinephrine 1:100K 20 ML VIAL ONE (11:40)
[2019-09-11] MEDS ORDERED: Bupivacaine 0.25% HCL 30 ML VIAL ONE (11:40)
[2019-09-11] MEDS ORDERED: Famotidine/PF 20 mg/2ml Vial ONE (11:42)
[2019-09-11] MEDS ORDERED: PROPOFOL 80 ML ONE (11:42)
[2019-09-11] MEDS ORDERED: Fentanyl 100 MCG/2 ML VIAL ONE (11:42)
--- NOTE | 2019-09-11 14:03 | OP ---
DATE OF PROCEDURE: 09/11/2019 PREOPERATIVE DIAGNOSES: 1. 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 2. History of human immunodeficiency virus positivity and hepatitis C positivity. 3. Tobacco abuse. POSTOPERATIVE DIAGNOSES: 1. 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 2. History of human immunodeficiency virus positivity and hepatitis C positivity. 3. Tobacco abuse. PROCEDURE PERFORMED: Wide local excision of vulvar lesion. ANESTHESIA: IV sedation with local. PATHOLOGY: Vulvar lesion tagged at 12 o'clock position. FINDINGS: There is a leukoplakia change at the right inner labia minora approximately 2 x 2 cm, status post excision. No other abnormalities of the vulva noted. DISPOSITION: Day Stay and plan for discharge home. DESCRIPTION OF PROCEDURE: The patient previously received informed consent in regard to surgery. She was taken back to the operating room where she received IV sedation and local anesthetic agent. The patient had been prepped and draped. The lesion was noted. The marking pen was utilized to get the edges of the lesions, and then, additional 5 mm margin was obtained by marking with the Bovie cautery. This has been in a vertical elliptical direction. A #11 blade was utilized to incise the superficial edges of the proposed cauterized sites. Then with Bovie cautery involving most apical portion of the squamous tissue that the lesion was incised incorporating some of the fat and dermis and planing out this direction for hemostasis. Once the lesion was removed, it was tagged at 12 o'clock position with a 2-0 Vicryl suture. Further approximately, another 2 to 3 mm pass was carried out with Bovie cautery. Then, deep stitches of interrupted 2-0 Vicryl were utilized to close the deep space in a vertical direction, decreasing the tension on the deep closure component, then interrupted vertical mattress sutures of 3-0 Vicryl skin edge. This was closed adequately and then Dermabond was placed over this for added sealant. The wound was hemostatic. The patient was awakened from her IV sedation and transferred to recovery room in stable condition. Job ID: [id number]
== END 2019-09-11 13:40 | disposition home or self-care (01) ==
LOC: SDC 09:22
PROVIDERS: ATTEND Obstetrics & Gynecology
PROC: 0UBMXZZ Excision of Vulva, External Approach (ICD-10-PCS; principal; 2019-09-11)
DX: D07.1 Carcinoma in situ of vulva (principal); F17.210 Nicotine dependence, cigarettes, uncomplicated; B18.2 Chronic viral hepatitis C; F31.9 Bipolar disorder, unspecified; F20.9 Schizophrenia, unspecified; F41.9 Anxiety disorder, unspecified; E03.9 Hypothyroidism, unspecified; Z21 Asymptomatic human immunodeficiency virus [HIV] infection status; Z79.899 Other long term (current) drug therapy; Z88.0 Allergy status to penicillin; Z88.3 Allergy status to other anti-infective agents; Z91.012 Allergy to eggs; Z91.018 Allergy to other foods; Z91.048 Other nonmedicinal substance allergy status
CPT/HCPCS: 36415; 85027; 86850; 86900; 86901; 88305; J0690; J2250; J2704; J3010; S0020; S0028

== ENCOUNTER 2020-02-27 16:26 | Emergency (ER) | payer OTHER ==
[2020-02-27 17:22] LABS: Clarity Turbid (Clear); Glucose, Urine (Dipstick) Normal (Negative); Leukocyte 500 Leu/uL (Negative); Nitrite 2+ (Negative); Protein, Urine (Dipstick) 30 mg/dL (Neg-Trace); Specific Gravity, Urine 1.025 (1.002-1.036)
[2020-02-27 17:23] LABS: Bacteria/HPF 4+ HPF (None Seen); Bilirubin Negative (Negative); Blood, Urine 3+ (Negative); Calcium Oxalate Crystals 4+ HPF (None Seen); Ketone, Urine Negative (Negative); RBC/HPF 21-50 HPF (0-3); Urobilinogen Normal mg/dL (Less than 2); WBC/HPF Greater than 50 HPF (0-3)
[2020-02-27] MEDS ORDERED: Nitrofurantoin Monohyd/M-Cryst 100 MG CAP PO SCH (19:00)
== END 2020-02-27 19:01 | disposition home or self-care (01) ==
LOC: ERS 16:26
DX: N39.0 Urinary tract infection, site not specified (principal); E03.9 Hypothyroidism, unspecified; B20 Human immunodeficiency virus [HIV] disease; J44.9 Chronic obstructive pulmonary disease, unspecified; F25.9 Schizoaffective disorder, unspecified; F17.210 Nicotine dependence, cigarettes, uncomplicated; Z79.899 Other long term (current) drug therapy
CPT/HCPCS: 81003; 81015; 87077; 87086; 87186; 99283

== ENCOUNTER 2020-11-14 09:22 | Emergency (ER) | payer OTHER ==
[2020-11-14] MEDS ORDERED: Ketorolac Tromethamine 30 MG/ML VIAL ONE ×2 (10:06→10:14)
== END 2020-11-14 10:30 | disposition home or self-care (01) ==
LOC: ERS 09:22
DX: M25.511 Pain in right shoulder (principal); E03.9 Hypothyroidism, unspecified; J44.9 Chronic obstructive pulmonary disease, unspecified; F17.210 Nicotine dependence, cigarettes, uncomplicated; Z79.899 Other long term (current) drug therapy
CPT/HCPCS: 96372; 99283; J1885

== ENCOUNTER 2021-05-18 08:52 | Emergency (ER) | payer OTHER ==
[2021-05-18 09:53] LABS: #Basophils 0.1 thou/uL (0.0-0.2); #Eosinphils 0.2 thou/uL (0.0-0.7); #Lymphocytes 2.7 thou/uL (1.20-3.40); #Monocytes 0.9 thou/uL (0.11-0.59); #Neutrophils 5.2 thou/uL (1.40-6.50); %Basophils 0.9 % (0.0-1.0); %Eosinophils 2.2 % (0.0-10.0); %Lymphocytes 29.6 % (21.0-51.0); %Monocytes 9.4 % (0.0-10.0); %Neutrophils 57.9 % (42.0-75.0); Hemoglobin 15.1 g/dL (12.0-16.0); Mean Corpuscular HGB CONC 34.2 g/dL (32.0-36.0); Mean Corpuscular Volume 96.4 fL (78.0-98.0); Mean Platelet Volume 6.1 fL (7.4-10.4); Platelet Count 236 thou/uL (130-400); RBC Distribution Width 12.7 % (11.5-14.5); Red Blood Cell (RBC) Count 4.58 mill/uL (4.20-5.40)
[2021-05-18] MEDS ORDERED: Lorazepam 1 MG TAB ONE (10:06)
[2021-05-18] MEDS ORDERED: Nicotine 14 MG PATCH ONE (10:06)
[2021-05-18 10:10] LABS: ALT (SGPT) 14 U/L (8-55); AST (SGOT) 18 U/L (5-34); Acetaminophen Less than 6.0 mcg/mL (10.0-30.0); Albumin 3.6 g/dL (3.5-5.0); Alcohol 26 mg/dL (Less than 10); Alkaline Phosphatase 80 U/L (40-110); Anion Gap 14 mmol/L (10-20); BUN (Urea Nitrogen) 9 mg/dL (9.8-20.1); Bilirubin, Total 0.4 mg/dL (0.2-1.2); Calc. Creatinine Clearance 0 mL/min (70-130); Carbon Dioxide 18 mmol/L (22-29); Chloride 107 mmol/L (98-107); Globulin 3.4 g/dL (2.4-3.5); Glucose 82 mg/dL (70-105); Potassium 3.5 mmol/L (3.5-5.1); Salicylate Less than 8.0 mg/dL (15.0-30.0); Sodium 135 mmol/L (136-145)
[2021-05-18 10:18] LABS: Bacteria/HPF 2+ HPF (None Seen); Bilirubin Negative (Negative); Blood, Urine 1+ (Negative); Clarity Clear (Clear); Glucose, Urine (Dipstick) Normal (Negative); Ketone, Urine Negative (Negative); Leukocyte 250 Leu/uL (Negative); Nitrite Negative (Negative); Protein, Urine (Dipstick) Negative (Neg-Trace); Specific Gravity, Urine 1.006 (1.002-1.036); Squamous Epithelial 0-3 HPF (0-3); Urobilinogen Normal mg/dL (Less than 2); pH, Urine 6.5 (5.0-9.0)
[2021-05-18 10:24] LABS: Amphetamine Not Detected (NotDetected); Barbiturates Screen Not Detected (NotDetected); Benzodiazepine Screen Not Detected (NotDetected); Cocaine Metabolite Screen Detected (NotDetected); Methadone Not Detected (NotDetected); Methamphetamine Not Detected (NotDetected); Opiate Screen Not Detected (NotDetected); Oxycodone Screen Not Detected (NotDetected); Phencyclidine (PCP) Not Detected (NotDetected); THC/Cannabinoid Screen Not Detected (NotDetected); Tricyclic Screen Not Detected (NotDetected)
[2021-05-18] MEDS ORDERED: Lidocaine 1% PF 5 ML VIAL ONE (11:40)
[2021-05-18] MEDS ORDERED: cefTRIAXone\\ROCEPHIN 1 GM VIAL ONE (11:40)
[2021-05-18 15:37] LABS: SARS-CoV-2 PCR by NAA DETECTED (NotDetected)
== END 2021-05-18 15:36 ==
LOC: ERS 08:52
DX: U07.1 COVID-19 (principal); R45.851 Suicidal ideations; E03.9 Hypothyroidism, unspecified; J44.9 Chronic obstructive pulmonary disease, unspecified; F17.210 Nicotine dependence, cigarettes, uncomplicated; Z79.899 Other long term (current) drug therapy
CPT/HCPCS: 36415; 80053; 80306; 80307; 81003; 81015; 83735; 84443; 85025; 93005; 96372; J0696; U0003; U0005

== ENCOUNTER 2022-01-03 15:19 | Emergency (ER) | payer OTHER ==
[2022-01-03] MEDS ORDERED: HYDROcodone/Acetaminophen 10/325 mg Tablet ONE (16:09)
[2022-01-03] MEDS ORDERED: Bacitracin 1 PK ONE (16:28)
[2022-01-03] MEDS ORDERED: Boostrix 0.5 ML (Tdap) VIAL ONE (16:28)
== END 2022-01-03 16:42 | disposition home or self-care (01) ==
LOC: ERS 15:19
DX: S61.012A Laceration without foreign body of left thumb without damage to nail, initial encounter (principal); E03.9 Hypothyroidism, unspecified; J44.9 Chronic obstructive pulmonary disease, unspecified; F17.210 Nicotine dependence, cigarettes, uncomplicated; B20 Human immunodeficiency virus [HIV] disease; Z79.899 Other long term (current) drug therapy; W26.8XXA Contact with other sharp object(s), not elsewhere classified, initial encounter
CPT/HCPCS: 90471; 90715

== ENCOUNTER 2023-07-03 20:32 | Emergency (ER) | payer OTHER | END 2023-07-03 21:08 | disposition left against medical advice (07) | LOC: ERS 20:32 | DX: Z53.21 Procedure and treatment not carried out due to patient leaving prior to being seen by health care provider (principal) ==

== ENCOUNTER 2024-05-04 18:17 | Emergency (ER) | payer OTHER ==
[2024-05-04 19:05] LABS: #Basophils 0.04 10x3/uL (0.0-0.2); %Basophils 0.4 % (0.0-1.0); %Eosinophils 0.5 % (0.0-10.0); %Lymphocytes 21.9 % (21.0-51.0); %Monocytes 8.1 % (0.0-10.0); %Neutrophils 68.8 % (42.0-75.0); Hematocrit 44.5 % (36.0-47.0); Hemoglobin 15.2 g/dL (12.0-16.0); Mean Corpuscular HGB CONC 34.2 g/dL (32.0-36.0); Mean Corpuscular Hemoglobin 31.5 pg (27.0-31.0); Mean Corpuscular Volume 92.1 fL (78.0-98.0); Mean Platelet Volume 8.9 fL (7.4-10.4); Platelet Count 254 10x3/uL (130-400); RBC Distribution Width 13.6 % (11.5-14.5); Red Blood Cell (RBC) Count 4.83 mill/uL (4.20-5.40)
[2024-05-04 19:14] LABS: ALT (SGPT) 12 U/L (8-55); AST (SGOT) 18 U/L (5-34); Albumin 3.7 g/dL (3.5-5.0); Alkaline Phosphatase 94 U/L (40-110); Anion Gap 10 mmol/L (10-20); BUN (Urea Nitrogen) 14 mg/dL (9.8-20.1); Bilirubin, Total 0.3 mg/dL (0.2-1.2); Calc. Creatinine Clearance 0 mL/min (70-130); Calcium 9.1 mg/dL (7.8-10.44); Carbon Dioxide 26 mmol/L (22-29); Chloride 108 mmol/L (98-107); Estimated GFR 64; Globulin 3.2 g/dL (2.4-3.5); Glucose 81 mg/dL (70-105); Potassium 4.1 mmol/L (3.5-5.1); Protein, Total 6.9 g/dL (6.0-8.3); Sodium 140 mmol/L (136-145)
[2024-05-04 19:15] LABS: Acetaminophen Less than 10 mcg/mL (Less than 10); Alcohol Less than 10.0 mg/dL (Less than 10); Salicylate Less than 8.0 mg/dL (Less than 8.0)
[2024-05-04] MEDS ORDERED: risperiDONE 1 MG TAB ONE (19:21)
== END 2024-05-04 19:34 | disposition home or self-care (01) ==
LOC: ERS 18:17
DX: R25.1 Tremor, unspecified (principal); B20 Human immunodeficiency virus [HIV] disease; F17.210 Nicotine dependence, cigarettes, uncomplicated; J44.9 Chronic obstructive pulmonary disease, unspecified; Z55.0 Illiteracy and low-level literacy; Z79.899 Other long term (current) drug therapy
CPT/HCPCS: 36415; 71045; 80053; 80307; 85025

== ENCOUNTER 2024-05-25 23:50 | Emergency (ER) | payer OTHER ==
[2024-05-26] MEDS ORDERED: diphenhydrAMINE 50 MG/ML VIAL ONE (00:20)
[2024-05-26 01:03] LABS: #Basophils 0.07 10x3/uL (0.0-0.2); %Basophils 0.8 % (0.0-1.0); %Eosinophils 1.5 % (0.0-10.0); %Lymphocytes 19.2 % (21.0-51.0); %Monocytes 8.4 % (0.0-10.0); %Neutrophils 69.7 % (42.0-75.0); Hemoglobin 15.1 g/dL (12.0-16.0); Mean Corpuscular HGB CONC 34.3 g/dL (32.0-36.0); Mean Corpuscular Hemoglobin 30.9 pg (27.0-31.0); Mean Corpuscular Volume 90.2 fL (78.0-98.0); Mean Platelet Volume 8.6 fL (7.4-10.4); Platelet Count 268 10x3/uL (130-400); RBC Distribution Width 13.7 % (11.5-14.5); Red Blood Cell (RBC) Count 4.88 mill/uL (4.20-5.40)
[2024-05-26 01:22] LABS: ALT (SGPT) 12 U/L (8-55); AST (SGOT) 21 U/L (5-34); Albumin 3.5 g/dL (3.5-5.0); Alkaline Phosphatase 93 U/L (40-110); Anion Gap 14 mmol/L (10-20); BUN (Urea Nitrogen) 16 mg/dL (9.8-20.1); Bilirubin, Total 0.4 mg/dL (0.2-1.2); CK (CPK) 52 U/L (29-168); Calc. Creatinine Clearance 0 mL/min (70-130); Calcium 9.6 mg/dL (7.8-10.44); Carbon Dioxide 20 mmol/L (22-29); Chloride 106 mmol/L (98-107); Estimated GFR 88; Globulin 4.6 g/dL (2.4-3.5); Glucose 98 mg/dL (70-105); Magnesium 2.2 mg/dL (1.6-2.6); Potassium 4.1 mmol/L (3.5-5.1); Protein, Total 8.1 g/dL (6.0-8.3); Sodium 136 mmol/L (136-145)
[2024-05-26 01:24] LABS: Troponin I Less than 0.010 ng/mL (< 0.028)
== END 2024-05-26 01:16 | disposition home or self-care (01) ==
LOC: ERS 23:50
DX: R25.1 Tremor, unspecified (principal); J44.9 Chronic obstructive pulmonary disease, unspecified; F17.210 Nicotine dependence, cigarettes, uncomplicated
CPT/HCPCS: 80053; 82550; 83735; 84443; 84484; 85025; 93005; 96374; J1200